=== PATIENT | male | born 1940 | race Caucasian/White ===

== ENCOUNTER 2018-07-30 08:01 | Inpatient (IN) ==
[2018-07-30] MEDS ORDERED: IPRATROPIUM/ALBUTEROL 3 ML AMPUL.NEB NEB ONE (08:41)
[2018-07-30] MEDS ORDERED: methylPREDNISolone SOD SUCC 125 MG/2 ML VIAL IV ONE (08:41)
--- NOTE | 2018-07-30 08:45 | Emergency Department Note ---
SOB HPI - General Chief Complaint: Shortness of Breath/Dyspnea Stated Complaint: Shortness of breath Time Seen by Provider: 07/30/18 08:27 Source: patient Mode of arrival: ambulatory Limitations: no limitations - History of Present Illness Patient complains of shortness of breath off-and-on for the last 2 months. Progressively worsening over the course of last 5 days. He feels short of breath even when he just walks across the room. O2 sats were borderline between 90 and 92% when he arrived here. He does wear CPAP at home at night. Is not oxygen dependent. Has had some chest tightness but denies anali chest pain. Has had ankle swelling. Denies abdominal pain no nausea vomiting no fevers or chills, does have a cough which is mainly nonproductive. States he has asthmatic bronchitis, never smoked, thought to have COPD from chronic bronchitis and asthma. MD Complaint: shortness of breath - Related Data Home Medications Medication Instructions Recorded Confirmed Albuterol Sulfate [Proair Hfa] 8.5 gm IH Q4-6HP PRN 11/20/15 11/20/15 HYDROcodone/APAP 10/325MG [[place] 1 tab PO Q6H PRN 11/20/15 11/20/15 10/325Mg] Hydrochlorothiazide 25 mg PO DAILY 11/20/15 11/20/15 Ipratropium/Albuterol [Duoneb] 3 ml NEB Q6HRT 11/20/15 11/20/15 Losartan [Cozaar] 50 mg PO DAILY 11/20/15 11/20/15 Meloxicam [Mobic] 7.5 mg PO DAILY 11/20/15 11/20/15 Ranitidine HCl [Zantac] 300 mg PO QHS 11/20/15 11/20/15 Rivaroxaban [Xarelto] 10 mg PO DAILY 11/20/15 11/20/15 Simvastatin [Zocor] 10 mg PO HS 11/20/15 11/20/15 glyBURIDE/METFORMIN HCL 1 each PO DAILY 11/20/15 11/20/15 [Glyburide-Metformin 2.5-500 mg] Previous Rx's Medication Instructions Recorded Promethazine HCl 12.5 mg PO 3-4XD #10 tablet 11/18/15 Pantoprazole [Protonix] 40 mg PO BIDAC #20 tablet 11/20/15 Sucralfate [Carafate] 1 gm PO 1HRACHS #60 tablet 11/20/15 Allergies Allergy/AdvReac Type Severity Reaction Status Date / Time No Known Drug Allergies Allergy Verified 11/20/15 07:55 Review of Systems All systems ED: reviewed and negative except as stated. Constitutional: Denies: fever, chills ENT ED: Denies: ear pain Cardiovascular: Reports: dyspnea on exertion. Denies: chest pain, palpitations Past Medical History - Past Medical History Source: unable to obtain, nursing notes reviewed Medical history: Reports: COPD, other (planning to have a hip replacement in 2 weeks, peptic ulcer disease 20 years ago with endoscopy) Surgical history ED: Reports: non-contributory Family history: Reports: non-contributory - Social History smoking status: Never smoker Alcohol use: Reports: Rarely Physical Exam Limitations: no limitations General appearance: alert Head: atraumatic, normocephalic Eye: Present: normal appearance, PERRL, EOMI. Absent: conjunctival injection ENT: normal exam, normal oropharynx, mucous membranes moist, TM's normal bilaterally Neck: Present: normal inspection, full ROM, trachea midline, other (obese neck prevents evaluation of JVD.). Absent: tenderness, meningismus, thyromegaly Chest: Present: normal inspection, symmetric chest wall rise Respiratory: Present: respiratory distress, wheezes, accessory muscle use, prolonged expiratory phase Cardiovascular: Present: regular rate, normal rhythm Abdominal: Present: soft, normal bowel sounds. Absent: distention, tenderness, guarding, rebound Extremities: Present: normal inspection, full ROM, normal capillary refill, pedal edema, pretibial edema. Absent: tenderness, calf tenderness Back: Present: normal inspection, full ROM. Absent: CVA tenderness (R), CVA tenderness (L) Neurological: Present: alert, oriented X3, CN II-XII intact Psychiatric: Present: normal affect Skin: Present: warm, dry, intact Course - Reevaluation(s) Reevaluation #1: Patient signed out to the oncoming physician 9 am Vital Signs Temperature 99.1 F H 07/30/18 08:02 Pulse Rate 82 07/30/18 08:02 Respiratory Rate 18 07/30/18 08:02 Blood Pressure 158/76 07/30/18 08:02 Pulse Oximetry (%) 90 07/30/18 08:02 Temperature 99.1 F H 07/30/18 08:02 Pulse Rate 82 07/30/18 08:17 Respiratory Rate 19 07/30/18 08:17 Blood Pressure 121/72 07/30/18 08:17 Pulse Oximetry (%) 91 07/30/18 08:17 Shortness of Breath/Dyspnea - Lab Data Result diagrams: 07/30/18 08:35 07/30/18 08:35 Disposition Pt seen by REGULATORY LEAD/PA only: No Clinical Impression: COPD (chronic obstructive pulmonary disease), Asthma with exacerbation Disposition: Still a Patient Condition: Fair Referrals: Nitin García MD [Primary Care Provider] -
--- NOTE | 2018-07-30 09:11 | XRay Report ---
CLINICAL INFORMATION: SOB x2 months. COMPARISON: 05/14/2018 FINDINGS: Heart size, mediastinum and pulmonary vessels are normal. Lungs are clear. No effusions. Severe degenerative changes noted in both glenohumeral and acromioclavicular joints with chronic rotator cuff tear/impingement change IMPRESSION: No acute cardiopulmonary disease Interpreted and Authenticated by: Bebeto Dumont 07/30/18
[2018-07-30 09:16] LABS: Basophils # (Auto) 0 K/mcL (0.0-0.3); Basophils % (Auto) 0.5 % (0.0-2.0); Eosinophils # (Auto) 0.7 K/mcL (0.0-0.7); Granulocytes % (Auto) 74.2 % (38.0-78.0); Lymphocytes # (Auto) 0.7 K/mcL (1.5-4.8); Lymphocytes % (Auto) 8.9 % (15.5-49.0); Mean Cell Volume 92.3 fL (80.0-100.0); Mean Corpuscular HGB Conc 33.7 g/dL (31.0-36.0); Monocytes # (Auto) 0.6 K/mcL (0.1-0.9); Monocytes % (Auto) 7.4 % (1.0-12.0); Platelet Count 181 K/mcL (140-440); RBC 4.25 M/mcL (4.50-5.90); Red Cell Distribution Width 13.7 % (11.5-14.5)
[2018-07-30 09:44] LABS: ALT/SGPT 12 U/l (0-40); Albumin 4.2 gm/dL (3.2-5.2); Albumin/Globulin Ratio 1.4 (1.0-2.3); Alkaline Phosphatase 60 U/L (39-117); Blood Urea Nitrogen 12 mg/dl (8-23)
[2018-07-30] MEDS ORDERED: ALBUTEROL SULFATE 2.5 MG/3 ML NEBULIZER NEB ONE (09:58)
[2018-07-30] MEDS ORDERED: MAGNESIUM SULFATE 2 GM/50 ML BAG IV ONE (09:58)
--- NOTE | 2018-07-30 10:07 | Emergency Department Note ---
SOB HPI - General Chief Complaint: Shortness of Breath/Dyspnea Stated Complaint: Shortness of breath Time Seen by Provider: 07/30/18 08:27 Source: patient Mode of arrival: ambulatory Limitations: no limitations - History of Present Illness Patient is checked out to me by Dr. Kuhn at shift change. I reviewed his notes as well as briefly reinterviewed the patient and listen to his lungs again Patient has a multiyear history of asthma/bronchitis with secondhand smoke exposure as a child but did not smoke himself. He does take inhalers at home as well as having DuoNeb nebulizer at home. He has seen Dr. Phelps, the medical affairs leader in the past, for obstructive sleep apnea but was not evaluated for asthma. This current episode of hypoxia and asthma exacerbation has been going on for about 2 months now and he has been wheezy. Oxygen saturations were in the high 80s at home. He is on BiPAP at night but not oxygen. He states his ankles are always swollen status post bilateral fusion He does see Dr. Reese at [facility] for ongoing surveillance - Related Data Home Medications Medication Instructions Recorded Confirmed Albuterol Sulfate [Proair Hfa] 8.5 gm IH Q4-6HP PRN 11/20/15 11/20/15 HYDROcodone/APAP 10/325MG [[place] 1 tab PO Q6H PRN 11/20/15 11/20/15 10/325Mg] Hydrochlorothiazide 25 mg PO DAILY 11/20/15 11/20/15 Ipratropium/Albuterol [Duoneb] 3 ml NEB Q6HRT 11/20/15 11/20/15 Losartan [Cozaar] 50 mg PO DAILY 11/20/15 11/20/15 Meloxicam [Mobic] 7.5 mg PO DAILY 11/20/15 11/20/15 Ranitidine HCl [Zantac] 300 mg PO QHS 11/20/15 11/20/15 Rivaroxaban [Xarelto] 10 mg PO DAILY 11/20/15 11/20/15 Simvastatin [Zocor] 10 mg PO HS 11/20/15 11/20/15 glyBURIDE/METFORMIN HCL 1 each PO DAILY 11/20/15 11/20/15 [Glyburide-Metformin 2.5-500 mg] Previous Rx's Medication Instructions Recorded Promethazine HCl 12.5 mg PO 3-4XD #10 tablet 11/18/15 Pantoprazole [Protonix] 40 mg PO BIDAC #20 tablet 11/20/15 Sucralfate [Carafate] 1 gm PO 1HRACHS #60 tablet 11/20/15 Allergies Allergy/AdvReac Type Severity Reaction Status Date / Time No Known Drug Allergies Allergy Verified 11/20/15 07:55 Review of Systems Constitutional: Denies: fever, chills ENT ED: Denies: ear pain Cardiovascular: Reports: dyspnea on exertion. Denies: chest pain, palpitations Past Medical History - Past Medical History Attestation: Yes: The following information was validated with the patient. Medical history: Reports: asthma, COPD, hyperlipidemia, hypertension, other ( planning to have a hip replacement in 2 weeks, peptic ulcer disease 20 years ago with endoscopy, obstructive sleep apnea on BiPAP, carotid atherosclerotic disease) Surgical history ED: Reports: hip replacement, knee replacement, other (fused ankles) - Social History smoking status: Never smoker Exposure to secondhand smoke: Yes Alcohol use: Reports: Rarely Physical Exam On lung field reassessment he still has significant wheezing and rhonchi but he is moving air better-this is after single treatment with DuoNeb and Solu- Medrol. Some pursed lip breathing. Nasal cannula oxygen on with levels 95% or so per finger probe. He is able to speak in complete sentences Limitations: no limitations General appearance: alert Course Vital Signs Temperature 99.1 F H 07/30/18 08:02 Pulse Rate 82 07/30/18 08:02 Respiratory Rate 18 07/30/18 08:02 Blood Pressure 158/76 07/30/18 08:02 Pulse Oximetry (%) 90 07/30/18 08:02 Temperature 99.1 F H 07/30/18 08:02 Pulse Rate 96 H 07/30/18 12:46 Respiratory Rate 15 07/30/18 12:46 Blood Pressure 153/79 07/30/18 12:46 Pulse Oximetry (%) 95 07/30/18 12:46 Shortness of Breath/Dyspnea - Lab Data Lab results reviewed: Yes I reviewed the patient's lab results. Result diagrams: 07/30/18 08:35 07/30/18 08:35 Lab Results 07/30/18 07/30/18 07/30/18 Range/Units 08:35 08:35 08:35 WBC 7.5 (4.5-11.0) K/mcL RBC 4.25 L (4.50-5.90) M/mcL Hgb 13.2 L (13.5-16.5) g/dL Hct 39.2 L (41.0-55.0) % MCV 92.3 (80.0-100.0) fL MCH 31.1 (26.0-34.0) pg MCHC 33.7 (31.0-36.0) g/dL RDW 13.7 (11.5-14.5) % Plt Count 181 (140-440) K/mcL MPV 7.9 (7.4-10.4) fL Gran % 74.2 (38.0-78.0) % Lymph % (Auto) 8.9 L (15.5-49.0) % Hartley % (Auto) 7.4 (1.0-12.0) % Eos % (Auto) 9.0 H (0.0-7.0) % Baso % (Auto) 0.5 (0.0-2.0) % Gran # 5.6 (1.8-8.0) K/mcL Lymph # (Auto) 0.7 L (1.5-4.8) K/mcL Hartley # (Auto) 0.6 (0.1-0.9) K/mcL Eos # (Auto) 0.7 (0.0-0.7) K/mcL Baso # (Auto) 0 (0.0-0.3) K/mcL Sodium 138 Cancelled (133-145) mmol/L Potassium 3.7 Cancelled (3.3-5.1) mmol/L Chloride 99 Cancelled (96-108) mmol/L Carbon Dioxide 26 Cancelled (22-30) mmol/L Anion Gap 13.0 Cancelled (8-16) BUN 12 Cancelled (8-23) mg/dl Creatinine 0.8 Cancelled (0.7-1.2) mg/dl GFR Calculation 85 Cancelled BUN/Creatinine Ratio Cancelled Glucose 138 H Cancelled (70-105) mg/dL Calcium 9.7 Cancelled (8.6-10.4) mg/dl Total Bilirubin 0.5 Cancelled (0.0-1.0) mg/dL AST 19 Cancelled (0-37) U/l ALT 12 Cancelled (0-40) U/l Alkaline Phosphatase 60 Cancelled (39-117) U/L Troponin T (0-0.03) ng/ml NT-Pro-B Natriuret Pep 107.5 (0-450) pg/ml Total Protein 7.1 Cancelled (5.9-8.4) gm/dL Albumin 4.2 Cancelled (3.2-5.2) gm/dL Globulin 2.9 Cancelled (2.2-3.7) gm/dL Albumin/Globulin Ratio 1.4 Cancelled (1.0-2.3) 07/30/18 Range/Units 08:35 WBC (4.5-11.0) K/mcL RBC (4.50-5.90) M/mcL Hgb (13.5-16.5) g/dL Hct (41.0-55.0) % MCV (80.0-100.0) fL MCH (26.0-34.0) pg MCHC (31.0-36.0) g/dL RDW (11.5-14.5) % Plt Count (140-440) K/mcL MPV (7.4-10.4) fL Gran % (38.0-78.0) % Lymph % (Auto) (15.5-49.0) % Hartley % (Auto) (1.0-12.0) % Eos % (Auto) (0.0-7.0) % Baso % (Auto) (0.0-2.0) % Gran # (1.8-8.0) K/mcL Lymph # (Auto) (1.5-4.8) K/mcL Hartley # (Auto) (0.1-0.9) K/mcL Eos # (Auto) (0.0-0.7) K/mcL Baso # (Auto) (0.0-0.3) K/mcL Sodium (133-145) mmol/L Potassium (3.3-5.1) mmol/L Chloride (96-108) mmol/L Carbon Dioxide (22-30) mmol/L Anion Gap (8-16) BUN (8-23) mg/dl Creatinine (0.7-1.2) mg/dl GFR Calculation BUN/Creatinine Ratio Glucose (70-105) mg/dL Calcium (8.6-10.4) mg/dl Total Bilirubin (0.0-1.0) mg/dL AST (0-37) U/l ALT (0-40) U/l Alkaline Phosphatase (39-117) U/L Troponin T < 0.01 (0-0.03) ng/ml NT-Pro-B Natriuret Pep (0-450) pg/ml Total Protein (5.9-8.4) gm/dL Albumin (3.2-5.2) gm/dL Globulin (2.2-3.7) gm/dL Albumin/Globulin Ratio (1.0-2.3) Arterial blood gas shows a pH is 7.44 PCO2 44 PO2 71 this is on 2 L - Radiology Data Radiology results reviewed: Yes I reviewed the patient's radiology results. 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 EKG results narrative: EKG shows a rate of 73 with abnormal R wave progression but otherwise no evidence of ischemia Disposition Pt seen by COVER STITCH MACHINE OPERATOR/PA only: No Clinical Impression: Hives Asthma with exacerbation Qualifiers: Asthma severity: unspecified severity Asthma persistence: unspecified Qualified Code(s): J45.901 - Unspecified asthma with (acute) exacerbation Summary: Patient was seen and evaluated by Dr. Bam guajardo. He was given DuoNeb and Solu- Medrol IV with significant improvement but he still remained wheezing with rhonchi. Chest x-ray does not show any acute lung compromise; laboratory unrevealing After I reevaluated him ordered peak flows, arterial blood gas and repeat albuterol. Patient was in good spirits and would prefer to go home as symptoms are improving. I also ordered a dose of IV magnesium to help relax the smooth muscles around his lungs He started having hives and erythema shelter through the magnesium dose of this is shut off and he was given 25 mg IV Benadryl-the hives were significant in all over his trunk and his face was turning red. Suspect that he was having a histamine reaction to IV magnesium. He was having some significant coughing as well. We gave him a second dose of 25 mg IV Benadryl We will order 10 mg albuterol continuous neb for persistent wheezing He continues to have wheezing and rhonchi in all lung king. Hives have subsided perhaps 75-80% he is feeling much better. However he still continues to work hard to breathe and require oxygen. Nursing staff reports that they have raised him to 3 L nasal cannula oxygen Because he is requiring oxygen and has had 3 rounds of nebulizer with only modest improvement, I do not think he can safely go home. Blood gas confirms hypoxia. Discussed case with Dr. Bond, the hospitalist, who agreed to accept the patient for further care and evaluation in the hospital. Disposition: Xfer As Inpt ([facility]) Condition: Fair Referrals: Nitin García MD [Primary Care Provider] -
[2018-07-30] MEDS ORDERED: diphenhydrAMINE 50 MG/ML VIAL IV ONE ×2 (10:29→10:37)
[2018-07-30] MEDS ORDERED: ALBUTEROL SULFATE 5 MG/ML NEB SOLUTION BOTTLE NEB ONE (10:55)
--- NOTE | 2018-07-30 14:10 | Internal Med History&Physical ---
Medical - H&P: HPI Patient information: Note initiated : 07/30/18 at 2:07 pm Service Date, if different from initiated Date: [] Patient: Reza Wing a 77 y/o M admitted on for Shortness of breath. Chief Complaint: [] History of present illness: Mr. Wing is a 77 year old M with h/o asthma, presents to the ER today for evaluation of shortness of breath which has been bothering him for nearly last 2 months. He has had on and off chr shortness of breath for much longer, but this current episode is for the last 2 months. Patient notes that his symptoms started as cough and shortness of breath, cough initially was dry but had some whitish sputum later down the line hemoptysis. His shortness of breath has progressively worsened over the last 2 months. He notes that activity makes it worse albuterol makes it better. Otherwise he had no other aggravating or relieving factors. Intermittently he has seen his regular provider for management of the shortness of breath. He believes he has been taking nebulizers 3-4 times a day as well as pro-air and Spiriva to help with this shortness of breath with limited response. He notes that he may have taken a course of steroids [his disagrees notes steroids were not given in the last 2 months] he also states that he may have also taken a course of antibiotics from his PCP. At baseline patient is able to play golf 3-4 times a week however now he will be unable to even walk 10 feet without getting significantly short of breath Today the patient noted his oxygen saturation had dropped to 85% and was not improving, he usually takes albuterol which helps improve his oxygen for a short duration of time however this time his oxygen level did not improve and he therefore came to the ED for further evaluation. In the emergency room on presentation the patient was hemodynamically stable low -grade temperature 99.1 heart rate 82 blood pressure 158/76 4 saturating around 85% on 1-2 L of oxygen. The patient had severe wheezing which was ongoing, he did get some duo nebs and steroids. Magnesium sulfate was given in the ED however patient had an adverse reaction to magnesium sulfate with generalized urticaria. Patient received IV Benadryl x2 with significant response to same. Patient also got a continuous albuterol nebulizer in the ED with some response. ABG done in the ED shows pH of 7.44 PCO2 44 and PO2 71 on 1 L of oxygen. Labs otherwise show normal WBC count hemoglobin 13.2 platelets 181 potassium 3.7 bicarbonate 26 creatinine 0.8 glucose 138. NT proBNP is 107. Given that patient has filed outpatient treatment is hypoxic and significantly short of breath patient is being admitted to the hospital for further management Review of systems: CONSTITUTIONAL: No weight loss, fever, chills, fatigue present HEENT: Eyes: No visual loss, blurred vision, double vision or yellow sclerae. Ears, Nose, Throat: No hearing loss, sneezing, congestion, runny nose or sore throat. SKIN: No rash or itching. CARDIOVASCULAR: No chest pain, chest pressure or chest discomfort. No palpitations or edema. RESPIRATORY: shortness of breath, wheezing and cough present. GASTROINTESTINAL: No nausea, vomiting or diarrhea or constipation. No abdominal pain or blood in stools No Virgie. GENITOURINARY: Denies Burning on urination. Blood in urine, or foul smelling urine NEUROLOGICAL: mild chronic headache, NO dizziness, syncope, paralysis, tremors , numbness or tingling in the extremities. No change in bowel or bladder control. MUSCULOSKELETAL: No new aches, has chr joint pains, back pain, follows with pain clinic HEMATOLOGIC: No bleeding or bruising. No enlarged nodes PSYCHIATRIC: No depression or anxiety. ENDOCRINOLOGIC: No reports of sweating, cold or heat intolerance. No polyuria or polydipsia. ALLERGIES: No hives (except in ER to mag sulphate) , eczema or rhinitis. Skin: No rash, no jaundice, cyanosis or pallor. Medical - H&P: PMH Medical history: Medical History Morbid obesity Hypertension Diabetes Chronic pain Obstructive sleep apnea Asthma Surgical history: Patient had bilateral knee surgery bilateral ankle fusion left hip surgery Pertinent family history: Mother had a history of COPD Social history: Patient lives with his Denies any history of tobacco or smoking Denies any history of recreational drug use Social alcohol reported Denies any pets Medical - H&P: Meds Home Medications Medication Instructions Recorded Confirmed Type Promethazine HCl 12.5 mg PO 3-4XD #10 tablet 11/18/15 11/20/15 Rx Albuterol Sulfate [Proair Hfa] 8.5 gm IH Q4-6HP PRN 11/20/15 11/20/15 History HYDROcodone/APAP 10/325MG [[place] 1 tab PO Q6H PRN 11/20/15 11/20/15 History 10/325Mg] Hydrochlorothiazide 25 mg PO DAILY 11/20/15 11/20/15 History Ipratropium/Albuterol [Duoneb] 3 ml NEB Q6HRT 11/20/15 11/20/15 History Losartan [Cozaar] 50 mg PO DAILY 11/20/15 11/20/15 History Meloxicam [Mobic] 7.5 mg PO DAILY 11/20/15 11/20/15 History Pantoprazole [Protonix] 40 mg PO BIDAC #20 tablet 11/20/15 Rx Ranitidine HCl [Zantac] 300 mg PO QHS 11/20/15 11/20/15 History Rivaroxaban [Xarelto] 10 mg PO DAILY 11/20/15 11/20/15 History Simvastatin [Zocor] 10 mg PO HS 11/20/15 11/20/15 History Sucralfate [Carafate] 1 gm PO 1HRACHS #60 tablet 11/20/15 Rx glyBURIDE/METFORMIN HCL 1 each PO DAILY 11/20/15 11/20/15 History [Glyburide-Metformin 2.5-500 mg] Allergies Allergy/AdvReac Type Severity Reaction Status Date / Time No Known Drug Allergies Allergy Verified 11/20/15 07:55 Medical - H&P: Exam - Constitutional Vitals: Temp Pulse Resp BP Pulse Ox 99.1 F H 98 H 16 153/79 94 07/30/18 08:02 07/30/18 13:46 07/30/18 13:46 07/30/18 13:46 07/30/18 13:46 Exam: GENERAL: The patient is a well-developed, well-nourished in no apparent distress. Is alert and oriented x3. Morbidly obese VITAL SIGNS: Reviewed and as noted elsewhere. HEENT: Head is normocephalic and atraumatic. Extraocular muscles are intact. Pupils are equal, round, and reactive to light. Nares appeared normal. Mouth appears any without lesions. Mucous membranes are moist. NECK: Normal to inspection, Supple, No lymphadenopathy or thyromegaly. LUNGS: Air entry equal on both sides, louise exp wheezing, gets sob with minimal activity, no accessory muscle use at rest. HEART: Regular rate and rhythm normal, S1 and S2 heard, no Gallop, S3 or Rub Noted, No Gross murmur heard. ABDOMEN: Soft, nontender, and nondistended. Positive bowel sounds. No hepatosplenomegaly was noted. large pannus EXTREMITIES: No cyanosis, clubbing, rash, lesions o, + edema present NEUROLOGIC: Cranial nerves II through XII are grossly intact. Motor and Sensory System Grossly Intact PSYCHIATRIC: Normal affect, Normal Mood. Appropriate Behavior. SKIN: No ulceration or wounds noted, No jaundice, No rash noted. Medical - H&P: Reslt - Labs CBC & Chem 7: 07/30/18 08:35 07/30/18 08:35 Labs: Short CBC 07/30/18 Range/Units 08:35 WBC 7.5 (4.5-11.0) K/mcL Hgb 13.2 L (13.5-16.5) g/dL Hct 39.2 L (41.0-55.0) % Plt Count 181 (140-440) K/mcL BMP 07/30/18 07/30/18 08:35 08:35 Sodium 138 Cancelled Potassium 3.7 Cancelled Chloride 99 Cancelled Carbon Dioxide 26 Cancelled BUN 12 Cancelled Creatinine 0.8 Cancelled Glucose 138 H Cancelled Calcium 9.7 Cancelled Cardiac Enzymes 07/30/18 Range/Units 08:35 Troponin T < 0.01 (0-0.03) ng/ml Liver Function 07/30/18 07/30/18 Range/Units 08:35 08:35 Total Bilirubin 0.5 Cancelled (0.0-1.0) mg/dL AST 19 Cancelled (0-37) U/l ALT 12 Cancelled (0-40) U/l Alkaline Phosphatase 60 Cancelled (39-117) U/L Albumin 4.2 Cancelled (3.2-5.2) gm/dL Medical - H&P: A/P - Narrative A/P Narrative: A/P Acute hypoxic respiratory failure Acute asthma exacerbation Morbid Obesity Obstructive sleep apnea Hypertension Diabetes Chronic pain Plan Admit to tele as inpatient IV steroids, zithromax and Duonebs X ray chest is negative, check D dimer, if elevated get CTA chest CPAP for VERO Resume home meds for HTNf/CHR pain once verified SSI for glucose control Xareltro was noted on med list, ? 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 will verify same DVT if on xareltro, will continue same, FUll code Carb consistent Diet.
[2018-07-30] MEDS ORDERED: DEXTROSE 31 GM ORAL.SUSP PO PRN (14:44)
[2018-07-30] MEDS ORDERED: NALOXONE HCL 0.4 MG/ML VIAL IV PRN (14:44)
[2018-07-30] MEDS ORDERED: diphenhydrAMINE 50 MG/ML VIAL IV PRN (14:44)
[2018-07-30] MEDS ORDERED: ONDANSETRON 4 MG/2 ML VIAL IV PRN (14:44)
[2018-07-30] MEDS ORDERED: AZITHROMYCIN 250 MG TABLET PO ONE (14:44)
[2018-07-30] MEDS ORDERED: DEXTROSE 50% 50 ML VIAL IV PRN (14:44)
[2018-07-30] MEDS ORDERED: ALBUTEROL SULFATE 2.5 MG/3 ML NEBULIZER NEB PRN (14:44)
[2018-07-30] MEDS: IPRATROPIUM/ALBUTEROL 3 ML AMPUL.NEB NEB SCH ×3 (15:23→22:44)
--- NOTE | 2018-07-30 16:41 | Cat Scan Report ---
CLINICAL INFORMATION: Chest pain COMPARISON: 05/23/2013 TECHNIQUE: 80 cc of Isovue-300 were injected intravenously. Using SmartPrep to maximize pulmonary artery opacification, 2.5 mm helical slices were obtained from the lung apices through the lung bases. Following reconstruction, 2.5 mm sagittal, coronal, and axial reformations were processed. The exam was reviewed at mediastinal, lung, and bone windows. The exam was performed using radiation dose optimization techniques including, but not limited to, automated exposure control, adjustment of the mA and/or kV according to patient size and use of iterative reconstruction technique. FINDINGS: Pulmonary parenchymal windows again show mild centrilobular emphysema. Scattered vague bullae in the upper lobes, elevated lung volumes and wall thickening of the right thigh compatible with chronic bronchitis. Mild groundglass airspace disease in the anterior basilar segment of the left lower lobe new from the 2013 CT. Could indicate a developing infiltrate. Scattered scarring throughout both lungs seen on the previous exam. No effusions. Mediastinal windows show thoracic aorta and pulmonary artery normal in contour and caliber. No gross evidence of pulmonary embolus. Heart is mildly enlarged and there is calcification within the aortic valves and also heavy atherosclerotic plaque in the coronary arteries. Esophagus is grossly normal. Thyroid is normal. The bones and soft tissues of the chest wall are unremarkable. Upper abdominal images show moderate atrophy of the pancreas. IMPRESSION: 1. Mild centrilobular emphysema. 2. Small groundglass infiltrate anterior segment left lower lobe new from the 2013 CT. This could potentially indicate developing infiltrate 3. Heavy atherosclerotic plaque in the coronary arteries. Interpreted and Authenticated by: Bebeto Dumont 07/30/18
[2018-07-30] MEDS: INSULIN LISPRO 1 UNIT/0.01 ML UNIT SQ SCH ×2 (16:45→20:22)
[2018-07-30] MEDS ORDERED: FORMOTEROL INH PRN (18:48)
[2018-07-30] MEDS ORDERED: MOMETASONE INH PRN (18:48)
[2018-07-30] MEDS ORDERED: HYDROcodone/APAP 10/325MG TABLET PO ONE (19:16)
[2018-07-30] MEDS: ACETAMINOPHEN 325 MG TABLET PO PRN ×2 (19:55→23:34)
[2018-07-30] MEDS ORDERED: FLUTICASONE PROPIONATE SPRAY.NAS NS PRN (21:00)
[2018-07-30] MEDS ORDERED: SIMVASTATIN 10 MG TABLET PO SCH (21:00)
[2018-07-30] MEDS: 0.9 % SODIUM CHLORIDE 10 ML SYRINGE IV SCH (21:40)
[2018-07-30] MEDS: methylPREDNISolone SOD SUCC 125 MG/2 ML VIAL IV SCH (21:40)
[2018-07-31] MEDS: HYDROcodone/APAP 10/325MG TABLET PO PRN ×3 (01:15→21:37)
[2018-07-31] MEDS: IPRATROPIUM/ALBUTEROL 3 ML AMPUL.NEB NEB SCH ×6 (03:04→22:40)
[2018-07-31] MEDS: ACETAMINOPHEN 325 MG TABLET PO PRN ×3 (04:08→19:24)
[2018-07-31] MEDS: 0.9 % SODIUM CHLORIDE 10 ML SYRINGE IV SCH ×3 (05:35→21:38)
[2018-07-31] MEDS: methylPREDNISolone SOD SUCC 125 MG/2 ML VIAL IV SCH ×3 (05:36→21:38)
[2018-07-31 06:10] LABS: ALT/SGPT 12 U/l (0-40); Albumin 4.1 gm/dL (3.2-5.2); Albumin/Globulin Ratio 1.4 (1.0-2.3); Alkaline Phosphatase 54 U/L (39-117); Bilirubin,Direct < 0.2 mg/dL (0.0-0.3); Blood Urea Nitrogen 15 mg/dl (8-23); Gamma Glutamyl Transpeptidase 30 U/L (8-61); Uric Acid 5.9 mg/dL (2.5-8.0)
[2018-07-31 06:59] LABS: Basophils # (Auto) 0 K/mcL (0.0-0.3); Basophils % (Auto) 0 % (0.0-2.0); Eosinophils # (Auto) 0 K/mcL (0.0-0.7); Eosinophils % (Auto) 0 % (0.0-7.0); Lymphocytes # (Auto) 0.4 K/mcL (1.5-4.8); Lymphocytes % (Auto) 5.6 % (15.5-49.0); Mean Cell Volume 92.5 fL (80.0-100.0); Monocytes # (Auto) 0.3 K/mcL (0.1-0.9); Monocytes % (Auto) 4.4 % (1.0-12.0); Platelet Count 196 K/mcL (140-440); RBC 4.19 M/mcL (4.50-5.90); Red Cell Distribution Width 13.4 % (11.5-14.5)
[2018-07-31] MEDS ORDERED: POTASSIUM CHLORIDE 20 MEQ PACKET PO ONE (07:45)
[2018-07-31] MEDS: INSULIN LISPRO 1 UNIT/0.01 ML UNIT SQ SCH ×4 (07:54→20:39)
[2018-07-31] MEDS ORDERED: HEPARIN 5,000 UNIT/ML VIAL SQ SCH (09:00)
[2018-07-31] MEDS ORDERED: VITAMIN D3 1,000 UNIT TABLET PO SCH (09:00)
[2018-07-31] MEDS ORDERED: AZITHROMYCIN 250 MG TABLET PO SCH (09:00)
[2018-07-31] MEDS ORDERED: MAGNESIUM OXIDE 400 MG TABLET PO SCH (09:00)
[2018-07-31] MEDS ORDERED: HYDROCHLOROTHIAZIDE 25 MG TABLET PO SCH (09:00)
[2018-07-31] MEDS ORDERED: LOSARTAN 50 MG TABLET PO SCH (09:00)
[2018-07-31] MEDS ORDERED: DILTIAZEM 120 MG CAP.XL.24H PO SCH (09:00)
[2018-07-31] MEDS ORDERED: MOMETASONE INH PRN (10:10)
[2018-07-31] MEDS ORDERED: ONDANSETRON 4 MG/2 ML VIAL IV PRN (10:10)
[2018-07-31] MEDS ORDERED: NALOXONE HCL 0.4 MG/ML VIAL IV PRN (10:10)
[2018-07-31] MEDS ORDERED: DEXTROSE 50% 50 ML VIAL IV PRN (10:10)
[2018-07-31] MEDS ORDERED: FORMOTEROL INH PRN (10:10)
[2018-07-31] MEDS ORDERED: FLUTICASONE PROPIONATE SPRAY.NAS NS PRN (10:10)
[2018-07-31] MEDS ORDERED: ALBUTEROL SULFATE 2.5 MG/3 ML NEBULIZER NEB PRN (10:10)
[2018-07-31] MEDS ORDERED: DEXTROSE 31 GM ORAL.SUSP PO PRN (10:10)
--- NOTE | 2018-07-31 13:21 | Internal Med Progress Note ---
Medical - PN: Subj Patient information: Note initiated : 07/31/18 at 1:19 pm Service Date, if different from initiated Date: [] Patient: Reza Wing a 77 y/o M admitted on 07/30/18 for Shortness of breath. Chief Complaint: [] Interval history: Mr. Wing is a 77 year old M with h/o asthma, presents to the ER today for evaluation of shortness of breath which has been bothering him for nearly last 2 months. He has had on and off chr shortness of breath for much longer, but this current episode is for the last 2 months. Patient notes that his symptoms started as cough and shortness of breath, cough initially was dry but had some whitish sputum later down the line hemoptysis. His shortness of breath has progressively worsened over the last 2 months. He notes that activity makes it worse albuterol makes it better. Otherwise he had no other aggravating or relieving factors. Intermittently he has seen his regular provider for management of the shortness of breath. He believes he has been taking nebulizers 3-4 times a day as well as pro-air and Spiriva to help with this shortness of breath with limited response. He notes that he may have taken a course of steroids [his disagrees notes steroids were not given in the last 2 months] he also states that he may have also taken a course of antibiotics from his PCP. At baseline patient is able to play golf 3-4 times a week however now he will be unable to even walk 10 feet without getting significantly short of breath Today the patient noted his oxygen saturation had dropped to 85% and was not improving, he usually takes albuterol which helps improve his oxygen for a short duration of time however this time his oxygen level did not improve and he therefore came to the ED for further evaluation. In the emergency room on presentation the patient was hemodynamically stable low -grade temperature 99.1 heart rate 82 blood pressure 158/76 4 saturating around 85% on 1-2 L of oxygen. The patient had severe wheezing which was ongoing, he did get some duo nebs and steroids. Magnesium sulfate was given in the ED however patient had an adverse reaction to magnesium sulfate with generalized urticaria. Patient received IV Benadryl x2 with significant response to same. Patient also got a continuous albuterol nebulizer in the ED with some response. ABG done in the ED shows pH of 7.44 PCO2 44 and PO2 71 on 1 L of oxygen. Labs otherwise show normal WBC count hemoglobin 13.2 platelets 181 potassium 3.7 bicarbonate 26 creatinine 0.8 glucose 138. NT proBNP is 107. Given that patient has filed outpatient treatment is hypoxic and significantly short of breath patient is being admitted to the hospital for further management 07/31 Pt seen examined, no acute issues, pt feels much better CT is neg for PE< emphysema noted, Has coronoary artery calcifications, Stress test neg 2 yrs ago follows with cardiology xfer to med surg status. Pertinent ROS: Denies headache, dizziness Denies chest pain, palpitations Denies cough or shortness of breath ( cough and sob improved) Denies abdominal pain, nausea or vomiting. - Constitutional Vitals: Vital Signs Temp Pulse Resp BP Pulse Ox 99.5 F H 102 H 24 H 141/77 92 07/31/18 11:20 07/31/18 11:20 07/31/18 11:20 07/31/18 11:20 07/31/18 11:20 Period Temp Pulse Resp BP Sys/Rodriguez Pulse Ox Last 24 Hr 97.8 F-99.5 F 76-120 15- 121-153/65-106 89-95 Intake and Output 07/30/18 07/31/18 07/31/18 21:59 05:59 13:59 Intake Total 360 / 360 Output Total 300 / 300 950 / 950 Balance -300 / -300 -950 / -950 359 / 359 Weight 301 lb 12.8 oz Intake & Output: Intake & Output 07/30/18 07/31/18 07/31/18 21:59 05:59 13:59 Intake Total 360 / 360 Output Total 300 / 300 950 / 950 Balance -300 / -300 -950 / -950 359 / 359 Weight 301 lb 12.8 oz Intake: Oral 360 / 360 Output: Urine Catheter Amount 300 / 300 Void Amount 950 / 950 Stool Other: Meal Dinner Breakfast Percent of Meal Consumed 100% 100% Feeding Ability Assist with Tray Set Up Assist with Tray Set Up Urine Appearance Clear Clear Urine Color Dark Yellow Light Mayda # Voids 1 Exam: Constitutional; Afebrile, cooperative, alert, not in distress. Eyes- No icterus, , No periorbital swelling Ears- Ext ear normal, hearing normal to conversation. Neck- Midline trachea, supple Respiratory system: Air Entry equal on both sides, improved air entry from yesterday, but still reduced, has wheezing louise, speaking full sentences, no accessory muscle use. CVS- Rate rhythm regular, S1,S2 heard, no gallop, no rub. Abdomen- Soft nontender abdomen, no organomegaly, no tenderness, no guarding or rigidity, FORECLOSURE SPECIALIST- AOOx3, moving all extremities, no gross focal deficit noted. Medical - PN: Obj Da - Labs CBC & Chem 7: 07/31/18 06:20 07/31/18 03:50 Labs: Abnormal Lab Results 07/31/18 07/31/18 07/30/18 06:20 03:50 14:06 RBC 4.19 L Hgb 13.2 L Hct 38.7 L Gran % 90.0 H Lymph % (Auto) 5.6 L Eos % (Auto) Lymph # (Auto) 0.4 L D-Dimer 1.32 H Glucose 251 H Phosphorus 2.5 L Magnesium 1.5 L 07/30/18 07/30/18 08:35 08:35 RBC 4.25 L Hgb 13.2 L Hct 39.2 L Gran % Lymph % (Auto) 8.9 L Eos % (Auto) 9.0 H Lymph # (Auto) 0.7 L D-Dimer Glucose 138 H Phosphorus Magnesium Meds: Medications Acetaminophen (Tylenol) 650 mg PO Q6HP PRN PRN Reason: PAIN/FEVER > 101 Last Admin: 07/31/18 11:46 Dose: 650 mg Hydrocodone Bitart/Acetaminophen ([place] 10/325mg) 1 tab PO Q6HP PRN PRN Reason: PAIN LEVEL 3-6 Albuterol Sulfate (Ventolin) 2.5 mg NEB Q2HP PRN PRN Reason: Shortness Of Breath Albuterol/Ipratropium (Duoneb) 3 ml NEB Q4HRT [facility] Last Admin: 07/31/18 10:14 Dose: 3 ml Azithromycin (Zithromax) 250 mg PO DAILY [facility] Stop: 08/03/18 09:01 Dextrose (Dextrose 50%) 0 ml IV UD PRN PRN Reason: Hypoglycemia Diagnostic Test (Pha) (Accu-Chek) 1 each FS ACHS [facility] Last Admin: 07/31/18 11:46 Dose: 1 each Diltiazem HCl (Cardizem Cd) 120 mg PO DAILY [facility] Diphenhydramine HCl (Benadryl) 12.5 mg IV Q4HP PRN PRN Reason: Allergic Symptoms Fluticasone Propionate (Flonase) 1 spray NS DAILYP PRN PRN Reason: ALLERGY SYMPTOMS Glucose (Insta-Glucose) 15 gm PO PRN PRN PRN Reason: Hypoglycemia Heparin Sodium (Porcine) (Heparin) 5,000 unit SQ Q12 [facility] Hydrochlorothiazide (Oretic) 25 mg PO DAILY [facility] Insulin Human Lispro (Humalog) 0 unit SQ ACHS [facility]; Protocol Last Admin: 07/31/18 11:47 Dose: 2 unit Losartan Potassium (Cozaar) 50 mg PO DAILY [facility] Magnesium Oxide (Magnesium Oxide) 400 mg PO BID [facility] Methylprednisolone Sodium Succinate (Solu-Medrol) 62.5 mg IV Q8 [facility] Naloxone HCl (Narcan) 0.1 mg IV Q2MIN PRN PRN Reason: Opiate Reversal Ondansetron HCl (Zofran) 4 mg IV Q4HP PRN PRN Reason: Nausea And Vomiting Mometasone/Formoterol [Dulera 200 Mcg/5 Mcg] 2 dose INH DAILY PRN PRN Reason: Shortness Of Breath Or Wheezing Simvastatin (Zocor) 10 mg PO HS [facility] Sodium Chloride (Saline Flush) 10 ml IV Q8 [facility] Vitamin D (Vitamin D3) 1,000 unit PO DAILY [facility] Medical - PN: A/P - Time Spent With Patient Total time spent is greater than 50% in coordination of care (as documented) at patient's floor/unit and/or counseling patient: - Narrative A/P Narrative: A/P Acute hypoxic respiratory failure Acute asthma exacerbation Morbid Obesity Obstructive sleep apnea Hypertension Diabetes Chronic pain Plan xfer to med surg Contnue with IV steroids, zithromax and Duonebs X ray chest is negative, CTA is neg for PE CPAP for VERO Resume home meds for HTNf/CHR pain SSI for glucose control DVT prophylaxis, Hep sq Full code Carb consistent Diet. Medical - PN: Qual - VTE Deep Vein Thrombosis/Pulmonary Embolism Present on Admission: No
[2018-07-31] MEDS: MAGNESIUM OXIDE 400 MG TABLET PO SCH (20:38)
[2018-07-31] MEDS: SIMVASTATIN 10 MG TABLET PO SCH (20:38)
[2018-07-31] MEDS: HEPARIN 5,000 UNIT/ML VIAL SQ SCH (20:39)
[2018-07-31] MEDS: diphenhydrAMINE 50 MG/ML VIAL IV PRN (21:39)
[2018-07-31] MEDS: BENZONATATE 100 MG CAPSULE PO PRN (21:59)
[2018-08-01] MEDS: IPRATROPIUM/ALBUTEROL 3 ML AMPUL.NEB NEB SCH ×6 (02:28→22:11)
[2018-08-01 05:51] LABS: Basophils # (Auto) 0 K/mcL (0.0-0.3); Basophils % (Auto) 0 % (0.0-2.0); Eosinophils # (Auto) 0 K/mcL (0.0-0.7); Eosinophils % (Auto) 0 % (0.0-7.0); Granulocytes % (Auto) 92.4 % (38.0-78.0); Lymphocytes # (Auto) 0.5 K/mcL (1.5-4.8); Lymphocytes % (Auto) 4.4 % (15.5-49.0); Mean Cell Volume 93.1 fL (80.0-100.0); Mean Corpuscular HGB Conc 33.4 g/dL (31.0-36.0); Monocytes # (Auto) 0.3 K/mcL (0.1-0.9); Monocytes % (Auto) 3.2 % (1.0-12.0); Platelet Count 222 K/mcL (140-440); Red Cell Distribution Width 13.8 % (11.5-14.5)
[2018-08-01 06:10] LABS: ALT/SGPT 16 U/l (0-40); Albumin 4.1 gm/dL (3.2-5.2); Albumin/Globulin Ratio 1.3 (1.0-2.3); Alkaline Phosphatase 56 U/L (39-117); Bilirubin,Direct < 0.2 mg/dL (0.0-0.3); Blood Urea Nitrogen 20 mg/dl (8-23); Gamma Glutamyl Transpeptidase 31 U/L (8-61); Uric Acid 5.4 mg/dL (2.5-8.0)
[2018-08-01] MEDS: methylPREDNISolone SOD SUCC 125 MG/2 ML VIAL IV SCH ×3 (06:30→21:15)
[2018-08-01] MEDS: 0.9 % SODIUM CHLORIDE 10 ML SYRINGE IV SCH ×3 (06:31→21:15)
[2018-08-01] MEDS: MAGNESIUM OXIDE 400 MG TABLET PO SCH ×2 (08:16→21:08)
[2018-08-01] MEDS: INSULIN LISPRO 1 UNIT/0.01 ML UNIT SQ SCH ×4 (08:16→21:07)
[2018-08-01] MEDS: DILTIAZEM 120 MG CAP.XL.24H PO SCH (08:16)
[2018-08-01] MEDS: HEPARIN 5,000 UNIT/ML VIAL SQ SCH ×2 (08:17→21:06)
[2018-08-01] MEDS: AZITHROMYCIN 250 MG TABLET PO SCH (08:17)
[2018-08-01] MEDS: VITAMIN D3 1,000 UNIT TABLET PO SCH (08:17)
[2018-08-01] MEDS: HYDROCHLOROTHIAZIDE 25 MG TABLET PO SCH (08:17)
[2018-08-01] MEDS: LOSARTAN 50 MG TABLET PO SCH (08:17)
[2018-08-01] MEDS: HYDROcodone/APAP 10/325MG TABLET PO PRN ×3 (08:49→21:07)
[2018-08-01] MEDS: BENZONATATE 100 MG CAPSULE PO PRN ×3 (08:50→23:50)
[2018-08-01] MEDS: ACETAMINOPHEN 325 MG TABLET PO PRN ×4 (09:06→21:08)
--- NOTE | 2018-08-01 14:58 | Internal Med Progress Note ---
Medical - PN: Subj Patient information: Note initiated : 08/01/18 at 2:56 pm Service Date, if different from initiated Date: [] Patient: Reza Wing a 77 y/o M admitted on 07/30/18 for Shortness of breath. Chief Complaint: [] Interval history: Mr. Wing is a 77 year old M with h/o asthma, presents to the ER today for evaluation of shortness of breath which has been bothering him for nearly last 2 months. He has had on and off chr shortness of breath for much longer, but this current episode is for the last 2 months. Patient notes that his symptoms started as cough and shortness of breath, cough initially was dry but had some whitish sputum later down the line hemoptysis. His shortness of breath has progressively worsened over the last 2 months. He notes that activity makes it worse albuterol makes it better. Otherwise he had no other aggravating or relieving factors. Intermittently he has seen his regular provider for management of the shortness of breath. He believes he has been taking nebulizers 3-4 times a day as well as pro-air and Spiriva to help with this shortness of breath with limited response. He notes that he may have taken a course of steroids [his disagrees notes steroids were not given in the last 2 months] he also states that he may have also taken a course of antibiotics from his PCP. At baseline patient is able to play golf 3-4 times a week however now he will be unable to even walk 10 feet without getting significantly short of breath Today the patient noted his oxygen saturation had dropped to 85% and was not improving, he usually takes albuterol which helps improve his oxygen for a short duration of time however this time his oxygen level did not improve and he therefore came to the ED for further evaluation. In the emergency room on presentation the patient was hemodynamically stable low -grade temperature 99.1 heart rate 82 blood pressure 158/76 4 saturating around 85% on 1-2 L of oxygen. The patient had severe wheezing which was ongoing, he did get some duo nebs and steroids. Magnesium sulfate was given in the ED however patient had an adverse reaction to magnesium sulfate with generalized urticaria. Patient received IV Benadryl x2 with significant response to same. Patient also got a continuous albuterol nebulizer in the ED with some response. ABG done in the ED shows pH of 7.44 PCO2 44 and PO2 71 on 1 L of oxygen. Labs otherwise show normal WBC count hemoglobin 13.2 platelets 181 potassium 3.7 bicarbonate 26 creatinine 0.8 glucose 138. NT proBNP is 107. Given that patient has filed outpatient treatment is hypoxic and significantly short of breath patient is being admitted to the hospital for further management 07/31 Pt seen examined, no acute issues, pt feels much better CT is neg for PE< emphysema noted, Has coronoary artery calcifications, Stress test neg 2 yrs ago follows with cardiology xfer to med surg status 08/01 Pt seen examined, no acute issues, feels better, but still in 2-3L ioxygen able to amulate the hallways with oxygen with PT. . Pertinent ROS: Denies headache, dizziness Denies chest pain, palpitations improving cough or shortness of breath Denies abdominal pain, nausea or vomiting. - Constitutional Vitals: Vital Signs Temp Pulse Resp BP Pulse Ox 98.4 F 88 22 145/72 92 08/01/18 12:00 08/01/18 14:26 08/01/18 14:26 08/01/18 12:00 08/01/18 12:00 Period Temp Pulse Resp BP Sys/Rodriguez Pulse Ox Last 24 Hr 97.2 F-98.7 F 83-105 16-24 121-171/57-84 92-94 Intake and Output 08/01/18 08/01/18 08/01/18 05:59 13:59 21:59 Intake Total 400 / 400 Output Total 450 / 450 Balance -50 / -50 Weight 303 lb Patient Weight 08/02/18 05:59 Weight 303 lb Intake & Output: Intake & Output 08/01/18 08/01/18 08/01/18 05:59 13:59 21:59 Intake Total 400 / 400 Output Total 450 / 450 Balance -50 / -50 Weight 303 lb Intake: Oral 400 / 400 Output: Void Amount 450 / 450 Other: Urine Appearance Clear Urine Color Straw Urine Odor Normal # Voids 1 Exam: Constitutional; Afebrile, cooperative, alert, not in distress. Eyes- No icterus, , No periorbital swelling Ears- Ext ear normal, hearing normal to conversation. Neck- Midline trachea, supple Respiratory system: Air Entry equal on both sides, decreased air entry bilaterally, continues to improve, wheezing present, improving. CVS- Rate rhythm regular, S1,S2 heard, no gallop, no rub. Abdomen- Soft nontender abdomen, no organomegaly, no tenderness, no guarding or rigidity, REC THERAPIST- AOOx3, moving all extremities, no gross focal deficit noted. Medical - PN: Obj Da - Labs CBC & Chem 7: 08/01/18 04:15 08/01/18 04:15 Labs: Abnormal Lab Results 08/01/18 08/01/18 07/31/18 04:15 04:15 06:20 RBC 4.40 L 4.19 L Hgb 13.2 L Hct 38.7 L Gran % 92.4 H 90.0 H Lymph % (Auto) 4.4 L 5.6 L Eos % (Auto) Gran # 9.9 H Lymph # (Auto) 0.5 L 0.4 L D-Dimer Glucose 189 H Phosphorus 2.2 L Magnesium Lactate Dehydrogenase 258 H 07/31/18 07/30/18 07/30/18 03:50 14:06 08:35 RBC Hgb Hct Gran % Lymph % (Auto) Eos % (Auto) Gran # Lymph # (Auto) D-Dimer 1.32 H Glucose 251 H 138 H Phosphorus 2.5 L Magnesium 1.5 L Lactate Dehydrogenase 07/30/18 08:35 RBC 4.25 L Hgb 13.2 L Hct 39.2 L Gran % Lymph % (Auto) 8.9 L Eos % (Auto) 9.0 H Gran # Lymph # (Auto) 0.7 L D-Dimer Glucose Phosphorus Magnesium Lactate Dehydrogenase Meds: Medications Acetaminophen (Tylenol) 650 mg PO Q6HP PRN PRN Reason: PAIN/FEVER > 101 Last Admin: 08/01/18 14:42 Dose: 650 mg Hydrocodone Bitart/Acetaminophen ([place] 10/325mg) 1 tab PO Q6HP PRN PRN Reason: PAIN LEVEL 3-6 Last Admin: 08/01/18 14:45 Dose: 1 tab Albuterol Sulfate (Ventolin) 2.5 mg NEB Q2HP PRN PRN Reason: Shortness Of Breath Albuterol/Ipratropium (Duoneb) 3 ml NEB Q4HRT [facility] Last Admin: 08/01/18 14:25 Dose: 3 ml Azithromycin (Zithromax) 250 mg PO DAILY [facility] Stop: 08/03/18 09:01 Last Admin: 08/01/18 08:17 Dose: 250 mg Benzonatate (Tessalon) 200 mg PO TIDP PRN PRN Reason: Cough Last Admin: 08/01/18 14:42 Dose: 200 mg Dextrose (Dextrose 50%) 0 ml IV UD PRN PRN Reason: Hypoglycemia Diagnostic Test (Pha) (Accu-Chek) 1 each FS [facility] Last Admin: 08/01/18 12:03 Dose: 1 each Diltiazem HCl (Cardizem Cd) 120 mg PO DAILY [facility] Last Admin: 08/01/18 08:16 Dose: 120 mg Diphenhydramine HCl (Benadryl) 12.5 mg IV Q4HP PRN PRN Reason: Allergic Symptoms Last Admin: 07/31/18 21:39 Dose: 12.5 mg Fluticasone Propionate (Flonase) 1 spray NS DAILYP PRN PRN Reason: ALLERGY SYMPTOMS Glucose (Insta-Glucose) 15 gm PO PRN PRN PRN Reason: Hypoglycemia Heparin Sodium (Porcine) (Heparin) 5,000 unit SQ Q12 [facility] Last Admin: 08/01/18 08:17 Dose: 5,000 unit Hydrochlorothiazide (Oretic) 25 mg PO DAILY [facility] Last Admin: 08/01/18 08:17 Dose: 25 mg Insulin Human Lispro (Humalog) 0 unit SQ [facility]; Protocol Last Admin: 08/01/18 12:03 Dose: 3 unit Losartan Potassium (Cozaar) 50 mg PO DAILY [facility] Last Admin: 08/01/18 08:17 Dose: 50 mg Magnesium Oxide (Magnesium Oxide) 400 mg PO BID [facility] Last Admin: 08/01/18 08:16 Dose: 400 mg Methylprednisolone Sodium Succinate (Solu-Medrol) 62.5 mg IV Q8 [facility] Last Admin: 08/01/18 14:42 Dose: 62.5 mg Naloxone HCl (Narcan) 0.1 mg IV Q2MIN PRN PRN Reason: Opiate Reversal Ondansetron HCl (Zofran) 4 mg IV Q4HP PRN PRN Reason: Nausea And Vomiting Mometasone/Formoterol [Dulera 200 Mcg/5 Mcg] 2 dose INH DAILY PRN PRN Reason: Shortness Of Breath Or Wheezing Simvastatin (Zocor) 10 mg PO HS [facility] Last Admin: 12/25/18 20:38 Dose: 10 mg Sodium Chloride (Saline Flush) 10 ml IV Q8 [facility] Last Admin: 08/01/18 06:31 Dose: 10 ml Vitamin D (Vitamin D3) 1,000 unit PO DAILY [facility] Last Admin: 08/01/18 08:17 Dose: 1,000 unit Medical - PN: A/P - Time Spent With Patient Total time spent is greater than 50% in coordination of care (as documented) at patient's floor/unit and/or counseling patient: - Narrative A/P Narrative: A/P Acute hypoxic respiratory failure Acute asthma exacerbation Morbid Obesity Obstructive sleep apnea Hypertension Diabetes Chronic pain Plan continue oxygen supplementation to keep osat > 90 Continue with IV steroids, Zithromax and DuoNeb X ray chest is negative, CTA is neg for PE CPAP for VERO Resume home meds for HTN/CHR pain SSI for glucose control DVT prophylaxis, Hep sq Full code Carb consistent Diet. D/C home once off oxygen Medical - PN: Qual - VTE Deep Vein Thrombosis/Pulmonary Embolism Present on Admission: No
[2018-08-01] MEDS: SIMVASTATIN 10 MG TABLET PO SCH (21:08)
[2018-08-01] MEDS: diphenhydrAMINE 50 MG/ML VIAL IV PRN (21:14)
[2018-08-02] MEDS: IPRATROPIUM/ALBUTEROL 3 ML AMPUL.NEB NEB SCH ×3 (03:22→10:47)
[2018-08-02] MEDS: 0.9 % SODIUM CHLORIDE 10 ML SYRINGE IV SCH ×2 (05:47→14:19)
[2018-08-02] MEDS: methylPREDNISolone SOD SUCC 125 MG/2 ML VIAL IV SCH ×2 (05:47→14:20)
[2018-08-02 05:52] LABS: Basophils # (Auto) 0 K/mcL (0.0-0.3); Basophils % (Auto) 0 % (0.0-2.0); Eosinophils # (Auto) 0 K/mcL (0.0-0.7); Eosinophils % (Auto) 0 % (0.0-7.0); Lymphocytes # (Auto) 0.5 K/mcL (1.5-4.8); Lymphocytes % (Auto) 5.2 % (15.5-49.0); Mean Cell Volume 93.8 fL (80.0-100.0); Mean Corpuscular HGB Conc 33.5 g/dL (31.0-36.0); Monocytes # (Auto) 0.4 K/mcL (0.1-0.9); Monocytes % (Auto) 3.8 % (1.0-12.0); Platelet Count 238 K/mcL (140-440); RBC 4.57 M/mcL (4.50-5.90); Red Cell Distribution Width 13.9 % (11.5-14.5)
[2018-08-02 06:42] LABS: ALT/SGPT 20 U/l (0-40); Albumin/Globulin Ratio 1.3 (1.0-2.3); Alkaline Phosphatase 59 U/L (39-117); Bilirubin,Direct < 0.2 mg/dL (0.0-0.3); Blood Urea Nitrogen 24 mg/dl (8-23); Gamma Glutamyl Transpeptidase 32 U/L (8-61); Uric Acid 4.9 mg/dL (2.5-8.0)
[2018-08-02] MEDS: INSULIN LISPRO 1 UNIT/0.01 ML UNIT SQ SCH ×2 (06:57→11:26)
[2018-08-02] MEDS: AZITHROMYCIN 250 MG TABLET PO SCH (08:10)
[2018-08-02] MEDS: DILTIAZEM 120 MG CAP.XL.24H PO SCH (08:10)
[2018-08-02] MEDS: VITAMIN D3 1,000 UNIT TABLET PO SCH (08:10)
[2018-08-02] MEDS: BENZONATATE 100 MG CAPSULE PO PRN (08:10)
[2018-08-02] MEDS: MAGNESIUM OXIDE 400 MG TABLET PO SCH (08:12)
[2018-08-02] MEDS: LOSARTAN 50 MG TABLET PO SCH (08:12)
[2018-08-02] MEDS: HYDROCHLOROTHIAZIDE 25 MG TABLET PO SCH (08:12)
[2018-08-02] MEDS: HEPARIN 5,000 UNIT/ML VIAL SQ SCH (08:12)
[2018-08-02] MEDS: ACETAMINOPHEN 325 MG TABLET PO PRN (08:13)
[2018-08-02] MEDS: HYDROcodone/APAP 10/325MG TABLET PO PRN (08:13)
--- NOTE | 2018-08-02 11:48 | Discharge Summary ---
Medical - DS: Prov Patient information: Note initiated : 08/02/18 at 11:41 am Service Date, if different from initiated Date: [] Patient: Reza Wnig 77 y/o M admitted on 07/30/18 for Shortness of breath. Chief Complaint: [] Date of admission: 07/30/18 14:40 Discharge date: 08/02/18 Primary care physician: Nitin García Consults: 07/30/18 13:10 Consult to Physician [CONS] Stat Comment: Consulting Provider: Kelli Bond Reason For Exam: Physician to Consult Discharging clinician: Kelli Bond Medical - DS: Meds - Discharge Medications Prescriptions: Azithromycin [Zithromax] 250 mg PO DAILY #2 tab Benzonatate [Tessalon] 200 mg PO TIDP PRN #42 cap PRN Reason: Cough predniSONE [Prednisone] 10 mg PO QAC #23 tab Active and Home Medications: Home Medications HYDROcodone/APAP 10/325MG [[place] 10/325Mg] 1 tab PO Q6H PRN 11/20/15 [History Confirmed 07/30/18 Last Taken 07/30/18] Hydrochlorothiazide 25 mg PO DAILY 11/20/15 [History Confirmed 07/30/18 Last Taken 07/29/18] Losartan [Cozaar] 50 mg PO DAILY 11/20/15 [History Confirmed 07/30/18 Last Taken 07/29/18] Meloxicam [Mobic] 7.5 mg PO BID 11/20/15 [History Confirmed 07/30/18 Last Taken 07/29/18] Ranitidine HCl [Zantac] 300 mg PO DAILY 11/20/15 [History Confirmed 07/30/18 Last Taken 07/29/18] Simvastatin [Zocor] 10 mg PO HS 11/20/15 [History Confirmed 07/30/18 Last Taken 07/29/18] glyBURIDE/METFORMIN HCL [Glyburide-Metformin 2.5-500 mg] 1 each PO HS 11/20/15 [ History Confirmed 07/30/18 Last Taken 07/29/18] Albuterol Sulfate [Ventolin] 2 puff INH TIDP PRN 07/30/18 [History Confirmed Last Taken 07/30/18] Clotrimazole/Betamethasone Dip [Clotrimazole-Betamethasone Crm] 1 applic TOPICAL TIDP PRN 07/30/18 [History Confirmed 07/30/18 Last Taken Unknown] Diltiazem HCl [Cartia Xt] 120 mg PO DAILY 07/30/18 [History Confirmed 07/30/18 Last Taken 07/29/18] Docusate Sodium [Colace] 1 cap PO HS 07/30/18 [History Confirmed 07/30/18 Last Taken Unknown] Fluticasone 50mcg 1 spray INTRANASAL PRN PRN 07/30/18 [History Confirmed Last Taken Unknown] Mometasone/Formoterol [Dulera 200 Mcg/5 Mcg Inhaler] 2 puff INH DAILY PRN [History Confirmed 07/30/18 Last Taken Unknown] [place]-3/Dha/Epa/Fish Oil [Fish Oil 1,000 mg Softgel] 1 capsule PO DAILY [History Confirmed 07/30/18 Last Taken 07/29/18] Preservision Areds Softgel 1 tab PO BID 07/30/18 [History Confirmed 07/30/18 Last Taken 07/29/18] Vitamin D3 1,000 units PO DAILY 07/30/18 [History Confirmed 07/30/18 Last Taken 07/29/18] Medical - DS: Hosp Hospital course: Mr. Wing is a 77 year old M with h/o asthma, presents to the ER for evaluation of shortness of breath which has been bothering him for nearly last 2 months. He has had on and off chr shortness of breath for much longer, but this current episode is for the last 2 months. Patient notes that his symptoms started as cough and shortness of breath, cough initially was dry but had some whitish sputum later down the line hemoptysis. His shortness of breath has progressively worsened over the last 2 months. He notes that activity makes it worse albuterol makes it better. Otherwise he had no other aggravating or relieving factors. Intermittently he has seen his regular provider for management of the shortness of breath. He believes he has been taking nebulizers 3-4 times a day as well as pro-air and Spiriva to help with this shortness of breath with limited response. He notes that he may have taken a course of steroids [his disagrees notes steroids were not given in the last 2 months] he also states that he may have also taken a course of antibiotics from his PCP. At baseline patient is able to play golf 3-4 times a week however now he will be unable to even walk 10 feet without getting significantly short of breath Today the patient noted his oxygen saturation had dropped to 85% and was not improving, he usually takes albuterol which helps improve his oxygen for a short duration of time however this time his oxygen level did not improve and he therefore came to the ED for further evaluation. In the emergency room on presentation the patient was hemodynamically stable low -grade temperature 99.1 heart rate 82 blood pressure 158/76 4 saturating around 85% on 1-2 L of oxygen. The patient had severe wheezing which was ongoing, he did get some duo nebs and steroids. Magnesium sulfate was given in the ED however patient had an adverse reaction to magnesium sulfate with generalized urticaria. Patient received IV Benadryl x2 with significant response to same. Patient also got a continuous albuterol nebulizer in the ED with some response. ABG done in the ED shows pH of 7.44 PCO2 44 and PO2 71 on 1 L of oxygen. Labs otherwise show normal WBC count hemoglobin 13.2 platelets 181 potassium 3.7 bicarbonate 26 creatinine 0.8 glucose 138. NT proBNP is 107. Given that patient has filed outpatient treatment is hypoxic and significantly short of breath patient is being admitted to the hospital for further management Acute COPD Exacerbation- Patient treated with IV steroids, duonebs and antiboitics, x ray neg for pna, CTA neg for PE. Pt responded well to treatment, will be discharged on steroid taper, and complete the course of azithromcyin. Pt will be referred to pulmonary as outpatient. Discharge diagnosis: copd exacerbation - Time Spent with Patient Total time spent providing and/or coordinating discharge services: Greater than 30 minutes Medical - DS: Exam - Constitutional Vitals: Vital Signs Temp Pulse Pulse Resp BP BP Pulse Ox 08/02/18 11:10 90 08/02/18 10:35 100 H 20 08/02/18 07:27 93 H 20 91 08/02/18 07:25 99 H 18 08/02/18 07:12 97.5 F 95 H 16 156/85 91 08/02/18 07:08 89 20 91 08/02/18 06:56 20 91 08/02/18 03:20 98.4 F 72 16 158/85 94 08/01/18 23:45 97.8 F 74 20 158/88 94 08/01/18 22:11 88 22 08/01/18 19:23 97.6 F 84 22 149/71 94 08/01/18 18:38 92 08/01/18 18:37 88 22 08/01/18 16:00 98.4 F 85 22 150/75 92 08/01/18 14:26 88 22 08/01/18 12:00 98.4 F 83 22 145/72 92 Intake and Output 08/01/18 08/02/18 08/02/18 21:59 05:59 13:59 Intake Total 480 / 480 640 / 640 860 / 860 Output Total 500 / 500 650 / 650 150 / 150 Balance -20 / -20 -10 / -10 710 / 710 Intake: Oral 480 / 480 640 / 640 860 / 860 Output: Void Amount 500 / 500 650 / 650 150 / 150 Other: Meal Dinner Milk & 2pk grahm crackers Breakfast Percent of Meal Consumed 100% 100% 100% Feeding Ability Independent Urine Appearance Clear Clear Urine Color Bright Yellow Pale Urine Odor Normal Normal # Voids 2 1 Weight 290 lb Additional comments: Constitutional; Afebrile, cooperative, alert, not in distress. Eyes- No icterus, , No periorbital swelling Ears- Ext ear normal, hearing normal to conversation. Neck- Midline trachea, supple Respiratory system: Air Entry equal on both sides, No crackles or wheezing, no rhonchi. CVS- Rate rhythm regular, S1,S2 heard, no gallop, no rub. Abdomen- Soft nontender abdomen, no organomegaly, no tenderness, no guarding or rigidity, [employer]- AOOx3, moving all extremities, no gross focal deficit noted. Medical - DS: Data Labs on day of discharge: Labs from last 24 hours 08/02/18 08/02/18 04:20 04:20 WBC 10.2 RBC 4.57 Hgb 14.4 Hct 42.9 MCV 93.8 MCH 31.4 MCHC 33.5 RDW 13.9 Plt Count 238 MPV 7.9 Gran % 91.0 H Lymph % (Auto) 5.2 L [place] % (Auto) 3.8 Eos % (Auto) 0 Baso % (Auto) 0 Gran # 9.3 H Lymph # (Auto) 0.5 L [place] # (Auto) 0.4 Eos # (Auto) 0 Baso # (Auto) 0 Sodium 141 Potassium 3.7 Chloride 99 Carbon Dioxide 28 Anion Gap 14.0 BUN 24 H Creatinine 0.8 GFR Calculation 85 Glucose 185 H Uric Acid 4.9 Calcium 9.9 Phosphorus 2.4 L Magnesium 2.0 Total Bilirubin 0.5 Direct Bilirubin < 0.2 GGT 32 AST 30 ALT 20 Alkaline Phosphatase 59 Lactate Dehydrogenase 295 H Total Protein 7.1 Albumin 4.0 Globulin 3.1 Albumin/Globulin Ratio 1.3 Triglycerides 95 Medical - DS: A/P - Patient/Caregiver Discharge Instructions Activity: increase activity as tolerated Diet: Cardiac Additional Instructions: Follow up with Dr Aly in 1 month Take prednisone as prescribed, slow taper over 2 weeks. Take this medication with food. Go to the ER if worsening symptoms, chest pain, shortness of breath or any other acute concern. Follow up with your PCP in 1 week. - Follow up Plan Follow up with: Nitin García MD [Primary Care Provider] - Reza Aly MD [Physician] - Disposition: Home, Self-Care Prognosis: Fair Rehab Potential: Fair I certify that the patient requires SNF services: No Overall status at discharge: patient is progressing back to baseline Medical - DS: Qual - VTE Deep Vein Thrombosis/Pulmonary Embolism Present on Admission: No
== END 2018-08-02 14:40 | disposition home or self-care (01) | DRG 190 ==
LOC: ED 08:01 → ICU 14:40 → MEDSUR 07-31 10:50
PROVIDERS: ADMIT Internal Medicine; ATTEND Internal Medicine

== ENCOUNTER 2025-06-10 01:07 | Inpatient (IN) ==
[2025-06-10] MEDS ORDERED: IOPAMIDOL 100 ML BOTTLE IV ONE (01:08)
[2025-06-10] MEDS: fentaNYL 100 MCG/2 ML VIAL IV ONE ×4 (01:38→08:56)
[2025-06-10] MEDS: 0.9 % SODIUM CHLORIDE 500 ML IV ONE ×2 (01:38→03:35)
[2025-06-10 01:47] LABS: Basophils # (Auto) 0.04 K/mcL (0.00-0.30); Basophils % (Auto) 0.8 % (0.0-2.0); Eosinophils # (Auto) 0.22 K/mcL (0.00-0.70); Eosinophils % (Auto) 4.2 % (0.0-7.0); Hematocrit 34.1 % (40.1-51.0); Hemoglobin 11.9 g/dL (13.7-17.5); Lymphocytes # (Auto) 0.70 K/mcL (1.50-4.80); Lymphocytes % (Auto) 13.3 % (15.5-49.0); Mean Corpuscular HGB Conc 34.9 g/dL (31.0-36.0); Monocytes # (Auto) 0.74 K/mcL (0.10-0.90); Monocytes % (Auto) 14.0 % (1.0-12.0); Neutrophils % (Auto) 67.1 % (38.0-78.0); Platelet Count 183 K/mcL (140-440); RBC 3.67 M/mcL (4.63-6.08); WBC 5.3 K/mcL (4.5-11.0)
[2025-06-10 02:05] LABS: INR 1.3 (0.9-1.1); Partial Thromboplastin Time 35.4 sec (20.0-37.0); Prothrombin Time 16.9 sec (11.9-14.5)
[2025-06-10 02:13] LABS: Thyroid Stimulating Hormone 2.39 uIU/mL (0.27-5.01)
[2025-06-10 02:18] LABS: ALT/SGPT 12 U/L (<40); AST/SGOT 25 U/L (<40); Albumin 3.8 gm/dL (3.2-5.2); Albumin/Globulin Ratio 1.8 (1.0-2.3); Alkaline Phosphatase 115 U/L (39-117); Anion Gap 10.0 (8.0-16.0); Bilirubin,Total 0.8 mg/dL (0.1-1.0); Blood Urea Nitrogen 18 mg/dL (8-23); Calcium 8.9 mg/dL (8.6-10.4); Carbon Dioxide 22 mmol/L (22-30); Chloride 97 mmol/L (96-108); Globulin 2.1 gm/dL (2.2-3.7); Glucose 39 mg/dL (70-105); Potassium 4.0 mmol/L (3.3-5.1); Sodium 129 mmol/L (133-145)
[2025-06-10] MEDS: DEXTROSE 50% 50 ML SYRINGE IV ONE (02:30)
[2025-06-10] MEDS: ACETAMINOPHEN 1,000 MG/100 ML BAG IV ONE (05:02)
[2025-06-10 06:26] LABS: Bilirubin,Urine NEGATIVE (Negative); Color,Urine YELLOW; Glucose,Urine (UA) NEGATIVE (Negative); Ketones,Urine NEGATIVE (Negative); Leukocyte Esterase,Urine SMALL /uL (Negative); PH,Urine 6.0 (5.0-9.0); Protein,Urine NEGATIVE (Negative); Specific Gravity,Urine 1.010 (1.000-1.035); Urobilinogen,Urine 0.2 mg/dL
[2025-06-10] MEDS: DEXTROSE 50% 50 ML VIAL IV ONE (07:09)
[2025-06-10] MEDS: CALCIUM CARBONATE 500 MG TAB.CHEW CHEWED ONE (09:12)
[2025-06-10] MEDS ORDERED: METOCLOPRAMIDE 10 MG/2 ML VIAL IV PRN (11:58)
[2025-06-10] MEDS ORDERED: POTASSIUM CHLORIDE 20 MEQ TABLET PO PRN ×2 (11:58)
[2025-06-10] MEDS ORDERED: POTASSIUM CHLORIDE 40 MEQ in DEXTROSE 5% IN WATER 500 ML IV PRN (11:58)
[2025-06-10] MEDS ORDERED: ACETAMINOPHEN 325 MG TABLET PO PRN (11:58)
[2025-06-10] MEDS ORDERED: SENNOSIDES 1 TABLET PO PRN (11:58)
[2025-06-10] MEDS ORDERED: METOPROLOL TARTRATE 5 MG/5 ML VIAL IV PRN (11:58)
[2025-06-10] MEDS ORDERED: IPRATROPIUM/ALBUTEROL 3 ML AMPUL.NEB NEB PRN (11:58)
[2025-06-10] MEDS ORDERED: ONDANSETRON 4 MG/2 ML VIAL IV PRN (11:58)
[2025-06-10] MEDS ORDERED: DEXTROSE 50% 50 ML VIAL IV PRN (11:58)
[2025-06-10] MEDS ORDERED: DEXTROSE 31 GM ORAL.SUSP PO PRN (11:58)
[2025-06-10] MEDS: ENOXAPARIN 40 MG/0.4 ML SYRINGE SQ SCH (12:06)
[2025-06-10] MEDS: DOCUSATE SODIUM 100 MG CAPSULE PO SCH (12:07)
[2025-06-10] MEDS: 0.9 % SODIUM CHLORIDE 1,000 ML IV ONE (12:07)
[2025-06-10] MEDS: INSULIN LISPRO 1 UNIT/0.01 ML UNIT SQ SCH (12:15)
[2025-06-10 12:41] LABS: Estimated Average Glucose(eAG) 108 mg/dL; Hemoglobin A1C 5.4 % Hgb (4.0-6.0)
[2025-06-10] MEDS: PREGABALIN 75 MG CAPSULE PO SCH (20:34)
[2025-06-10] MEDS: ATORVASTATIN 40 MG TABLET PO SCH (20:35)
[2025-06-11 06:42] LABS: Basophils # (Auto) 0.05 K/mcL (0.00-0.30); Basophils % (Auto) 1.4 % (0.0-2.0); Eosinophils # (Auto) 0.25 K/mcL (0.00-0.70); Eosinophils % (Auto) 7.1 % (0.0-7.0); Hematocrit 30.8 % (40.1-51.0); Hemoglobin 10.5 g/dL (13.7-17.5); Lymphocytes # (Auto) 0.49 K/mcL (1.50-4.80); Lymphocytes % (Auto) 13.9 % (15.5-49.0); Mean Corpuscular HGB Conc 34.1 g/dL (31.0-36.0); Monocytes # (Auto) 0.41 K/mcL (0.10-0.90); Monocytes % (Auto) 11.6 % (1.0-12.0); Neutrophils % (Auto) 65.7 % (38.0-78.0); Platelet Count 136 K/mcL (140-440); RBC 3.24 M/mcL (4.63-6.08); WBC 3.5 K/mcL (4.5-11.0)
[2025-06-11 06:46] LABS: ALT/SGPT 9 U/L (<40); AST/SGOT 22 U/L (<40); Albumin 3.3 gm/dL (3.2-5.2); Albumin/Globulin Ratio 1.7 (1.0-2.3); Alkaline Phosphatase 92 U/L (39-117); Anion Gap 6.0 (8.0-16.0); Bilirubin,Direct 0.5 mg/dL (<0.3); Bilirubin,Total 0.9 mg/dL (0.1-1.0); Blood Urea Nitrogen 11 mg/dL (8-23); Calcium 8.8 mg/dL (8.6-10.4); Carbon Dioxide 24 mmol/L (22-30); Chloride 102 mmol/L (96-108); Globulin 1.9 gm/dL (2.2-3.7); Glucose 76 mg/dL (70-105); Phosphorous 3.3 mg/dL (2.5-4.5); Potassium 4.2 mmol/L (3.3-5.1); Sodium 132 mmol/L (133-145); Triglycerides 49 mg/dL (<150); Uric Acid 3.1 mg/dL (2.5-8.0)
[2025-06-11] MEDS: FAMOTIDINE 20 MG TABLET PO SCH (07:58)
[2025-06-11] MEDS: BACLOFEN 10 MG TABLET PO PRN (08:03)
[2025-06-11] MEDS: DILTIAZEM 120 MG CAP.XL.24H PO SCH (08:06)
[2025-06-11] MEDS: ASPIRIN 81 MG TAB.CHEW PO SCH (08:07)
[2025-06-11] MEDS ORDERED: diphenhydrAMINE 50 MG/ML VIAL IV PRN (09:40)
[2025-06-11] MEDS: MAGNESIUM SULFATE 2 GM/50 ML BAG IV ONE (11:18)
[2025-06-11] MEDS: OMEPRAZOLE 20 MG CAPSULE PO SCH (17:00)
[2025-06-12 05:56] LABS: Basophils # (Auto) 0.05 K/mcL (0.00-0.30); Basophils % (Auto) 1.1 % (0.0-2.0); Eosinophils # (Auto) 0.35 K/mcL (0.00-0.70); Eosinophils % (Auto) 7.5 % (0.0-7.0); Hematocrit 32.9 % (40.1-51.0); Hemoglobin 11.0 g/dL (13.7-17.5); Lymphocytes # (Auto) 0.71 K/mcL (1.50-4.80); Lymphocytes % (Auto) 15.2 % (15.5-49.0); Mean Corpuscular HGB Conc 33.4 g/dL (31.0-36.0); Monocytes # (Auto) 0.62 K/mcL (0.10-0.90); Monocytes % (Auto) 13.2 % (1.0-12.0); Neutrophils % (Auto) 62.6 % (38.0-78.0); Platelet Count 139 K/mcL (140-440); RBC 3.38 M/mcL (4.63-6.08); WBC 4.7 K/mcL (4.5-11.0)
[2025-06-12 06:21] LABS: ALT/SGPT 10 U/L (<40); AST/SGOT 21 U/L (<40); Albumin 3.5 gm/dL (3.2-5.2); Albumin/Globulin Ratio 1.6 (1.0-2.3); Alkaline Phosphatase 107 U/L (39-117); Anion Gap 6.0 (8.0-16.0); Bilirubin,Direct 0.6 mg/dL (<0.3); Bilirubin,Total 0.9 mg/dL (0.1-1.0); Blood Urea Nitrogen 14 mg/dL (8-23); Calcium 8.8 mg/dL (8.6-10.4); Carbon Dioxide 25 mmol/L (22-30); Chloride 101 mmol/L (96-108); Globulin 2.2 gm/dL (2.2-3.7); Glucose 91 mg/dL (70-105); Phosphorous 3.3 mg/dL (2.5-4.5); Potassium 4.5 mmol/L (3.3-5.1); Sodium 132 mmol/L (133-145); Triglycerides 46 mg/dL (<150); Uric Acid 3.4 mg/dL (2.5-8.0)
[2025-06-12] MEDS: POLYETHYLENE GLYCOL 3350 17 GM PACKET PO PRN (09:07)
[2025-06-13 07:31] VITALS: TEMP 98.8; O2SAT 97
== END 2025-06-13 10:30 | DRG 563 ==
LOC: ED 01:07 → MEDSUR 11:11
PROVIDERS: ADMIT Internal Medicine; ATTEND Internal Medicine